=== PATIENT | male | born 1975 | race Caucasian/White ===

== ENCOUNTER → 2019-03-23 09:43 | Outpatient (CLI) | payer OTHER, SELFPAY ==
--- NOTE | 2019-03-23 09:48 | NM_ITS ---
CLINICAL: 43-year-old male with reported history of clinical thyrotoxicosis. I-123 THYROID UPTAKE and SCAN COMPARISON: None available FINDINGS: The patient was administered a 300 uCi I-123 capsule by mouth. The 4-hour I-123 radioactive iodine thyroidal uptake was calculated to be 18.8 % (normal 5 to 25 %). The 24-hour I-123 radioactive iodine thyroidal uptake was calculated to be 50.0 % (normal 5 to 40 %). The I-123 thyroid scan demonstrates homogeneous radiopharmaceutical concentration throughout both lobes of a U -shaped thyroid gland. There are no colloidal parenchymal hypofunctioning-cold nodules noted in either lobe of the thyroid gland. NM/Thyroid Uptake Single or Mult IMPRESSION: 1. UPPER LIMITS OF NORMAL 4- and ABNORMAL ELEVATED 24-hour I-123 radioactive iodine thyroidal uptakes. 2. 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 Electronically Signed: Ang Burgos DO at 23:15 EDT Tel , Service support ,
== END ==
PROVIDERS: Family Provider Family Medicine; PCP Family Medicine; Referring Provider Internal Medicine Endocrinology, Diabetes & Metabolism; Visit Provider Internal Medicine Endocrinology, Diabetes & Metabolism
DX: R79.89 Other specified abnormal findings of blood chemistry (principal)
CPT/HCPCS: 78012; A9516

== ENCOUNTER → 2019-04-11 12:41 | Outpatient (CLI) | payer OTHER, SELFPAY ==
--- NOTE | 2019-04-11 12:48 | MRI_ITS ---
STUDY: MRI BRAIN WITH AND WITHOUT CONTRAST REASON FOR EXAM: Male, 43 years old. Elevated TSH, evaluate for pituitary lesion TECHNIQUE: Standardized multiplanar fat and water weighted pulse sequences were obtained. 13 IV Dotarem was administered for the contrast portion of the examination. COMPARISON: None. FINDINGS: Normal size of the ventricles and extra-axial spaces for the patient's age. Normal white matter tracts of the supratentorial brain. Normal bilateral basal ganglia. Normal thalami. There is no extra-axial fluid accumulation. Normal flow voids within the major intracranial circulation suggesting patency by spin echo criteria. Normal venous enhancement. There is no enhancing intra-axial or extra-axial abnormality. Normal sella turcica, pituitary gland, infundibular stalk, optic chiasm and hypothalamus. Normal tectal plate and pineal gland. Normal midbrain, rachael and medulla. Normal cerebellum. Normal basal cisterns. Normal bilateral temporal bones. Normal bilateral internal auditory canals. No demonstrated orbital abnormality, within the constraints of a routine brain study. Normal visualized paranasal sinuses. Normal calvarium and skull base. Normal visualized soft tissue structures. Normal visualized upper cervical spine. MRI/Brain W/WO Contrast IMPRESSION: Normal unenhanced and enhanced MRI of the brain. Normal pituitary gland without evidence of enhancing mass. Electronically Signed: Ami Putnam, at 16:18 EDT Tel , Service support ,
== END ==
PROVIDERS: Family Provider Family Medicine; PCP Family Medicine; Referring Provider Internal Medicine Endocrinology, Diabetes & Metabolism; Visit Provider Internal Medicine Endocrinology, Diabetes & Metabolism
DX: E07.89 Other specified disorders of thyroid (principal)
CPT/HCPCS: 70553; A9575